=== PATIENT | female | born 1990 | race African-American/Black ===

== ENCOUNTER 2018-03-31 19:11 | Emergency (ER) | payer BC, MEDICAID ==
[~2018-03-31] VITALS: Ht 165.1 cm; Wt 59.0 kg
[2018-03-31 23:16] LABS: CLARITY URINE CLOUDY (CLEAR); COLOR URINE YELLOW (YELLOW); KETONES URINE TRACE (NEGATIVE); LEUKOCYTE ESTERASE URINE 2+ (NEGATIVE); NITRITE URINE NEGATIVE (NEGATIVE); OCCULT BLOOD URINE 1+ (NEGATIVE); PH URINE 5.5 (4.5-8.0); PROTEIN URINE TRACE (NEGATIVE); SPECIFIC GRAVITY URINE 1.027 (1.005-1.030); UROBILINOGEN URINE 0.2 E.U./dL (0.2-1.0)
[2018-03-31 23:22] VITALS: BP 137/85
== END 2018-03-31 23:57 | disposition home or self-care (01) ==
LOC: ER 19:11
DX: F12.10 Cannabis abuse, uncomplicated (principal); R00.0 Tachycardia, unspecified; R00.2 Palpitations; Z90.49 Acquired absence of other specified parts of digestive tract
CPT/HCPCS: 81003; 81025; 93005; 99285